=== PATIENT | female | born 2000 | race Caucasian/White ===

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

== ENCOUNTER 2018-07-13 15:41 | Emergency (ER) | payer OTHER ==
[2018-07-13] MEDS ORDERED: EPINEPHrine 1 MG/ML INJ IM ONE (15:57)
[2018-07-13] MEDS ORDERED: methylPREDNISolone SOD SUCC 125 MG/2 ML VIAL IVP ONE (16:01)
--- NOTE | 2018-07-13 16:04 | EDPHY ---
H & P Stated Complaint: Unk allergen 30min ASSOCIATE- red itching skin, swollen lips, urticaria. Time Seen by Provider: 07/13/18 15:48 HPI/ROS: CHIEF COMPLAINT: Allergic reaction HISTORY OF PRESENT ILLNESS: 18-year-old female presents emergency department with a presumed allergic reaction. Unclear allergen. Patient reports she was at the gym, had been working out provide an hour and a half, 1st developed some abdominal upset, went to the bathroom,/moderate her face, and then relatively quickly developed redness of the face, itching, and hives which covers her entire body. Slight swelling of the eyelids. No difficulty breathing. Patient presents with her friend. Patient had been otherwise well prior to this reaction. She was at the gym that she typically goes to. REVIEW OF SYSTEMS: A comprehensive 10 system review of systems was reviewed and is otherwise negative aside from elements mentioned in the history of present illness and medical decision making. PAST MEDICAL HISTORY: Seasonal allergies. Anxiety. SOCIAL HISTORY: Here with a friend. [employer] student. VITAL SIGNS Reviewed by me. GENERAL: Well-developed, well-nourished, tearful. Reports she is scared of needles. Diffuse erythroderma the face. HEENT: Atraumatic. Eyes: No icterus, no injection. Swelling of the eyelids bilaterally. Mouth: moist mucous membranes. No erythema or lesions. Slight angioedema of the uvula. Neck: supple with no adenopathy. No stridor. LUNGS: Clear to auscultation bilaterally, no wheezes, rhonchi or rales. CARDIAC: Regular rate and rhythm, no rubs, murmurs or gallops. ABDOMEN: Soft, nontender, nondistended, bowel sounds normal. BACK: No CVA tenderness. EXTREMITIES: No trauma. No edema. Range of motion is normal throughout. NEURO: Alert and oriented, grossly nonfocal. SKIN: Diffuse hives and erythema covering the entire body down to the knees. PSYCHIATRIC: Normal mentation, no agitation. - Medical/Surgical History Hx Asthma: No Hx Chronic Respiratory Disease: No Hx Diabetes: No Hx Cardiac Disease: No Hx Renal Disease: No Hx Cirrhosis: No Hx Alcoholism: No Hx HIV/AIDS: No Hx Splenectomy or Spleen Trauma: No Other PMH: none - Social History Smoking Status: Never smoked Constitutional: Initial Vital Signs Temperature (C) 36.6 C 07/13/18 15:45 Heart Rate 88 07/13/18 15:45 Respiratory Rate 16 07/13/18 15:45 Blood Pressure 110/62 07/13/18 15:45 O2 Sat (%) 97 07/13/18 15:45 O2 Delivery Mode Room Air Allergies/Adverse Reactions: No Known Allergies Allergy (Verified 07/13/18 15:43) Home Medications: Medication Instructions Recorded EPINEPHrine [Epipen 0.3 MG] 0.3 mg IM ONCE #2 syr 07/13/18 predniSONE 40 mg PO DAILY #6 tab 07/13/18 Medical Decision Making ED Course/Re-evaluation: Treated immediately with epinephrine 0.3 mg IM. She received Benadryl 50 mg, Solu-Medrol 125 mg, and ranitidine 50 mg. Patient's hives improved rapidly. On re-examination at 5:15 a.m., she is resting comfortably. She has no further hives, angioedema has resolved. No further swelling of her eyelids. Long discussion held with the patient and her friend concerning today's events. Patient will be discharged with prescription for EpiPen, prednisone, and instructions regarding Benadryl as well as H2 blockers. She was aware that the rash may return over the next several days especially in the setting of stress or heat. Differential Diagnosis: Differential diagnoses for the patient's symptom complex was considered including but not limited to allergic reaction, urticaria, anaphylaxis, hereditary angioedema, drug-induced reaction. - Data Points Medications Given: Discontinued Medications Diphenhydramine HCl (Benadryl Injection) 50 mg IVP EDNOW ONE Stop: 07/13/18 15:59 Last Admin: 07/13/18 16:01 Dose: 50 mg Epinephrine HCl (Epinephrine) 0.3 mg IM EDNOW ONE Stop: 07/13/18 15:58 Last Admin: 07/13/18 15:57 Dose: 0.3 mg Methylprednisolone Sodium Succinate (Solu-Medrol) 125 mg IVP EDNOW ONE Stop: 07/13/18 16:02 Last Admin: 07/13/18 16:02 Dose: 125 mg Ranitidine HCl (Zantac) 50 mg IVP EDNOW ONE Stop: 07/13/18 16:10 Last Admin: 07/13/18 16:19 Dose: 50 mg Departure - Departure Disposition: Home, Routine, Self-Care Clinical Impression: Urticaria Allergic reaction Qualifiers: Encounter type: initial encounter Qualified Code(s): T78.40XA - Allergy, unspecified, initial encounter Condition: Serious Instructions: Urticaria (ED), Anaphylaxis (ED) Additional Instructions: There are 4 medications used to treat allergic reactions. #1. The first is epinephrine. Please use the epinephrine pen in the future as needed if the patient develops acute swelling, throat tightness, shortness of breath, or severe rash in the setting of allergic reaction. #2. The second type of medication are antihistamines. The most common antihistamine is diphenhydramine (Benadryl). Dose is 25-50 mg every 6-8 hours as needed for itching and rash. Diphenhydramine can be sedating. Another type of antihistamine is loratadine (Claritin). This is taken once a day. It is not sedating. Repeat doses of antihistamines may be needed as the hives will come and go over the next several days. You may notice that the hives are worse after exposure to heat, warm showers, or exertion. #3. The third medication is Pepcid which is another type of an antihistamine. Dose is 20 mg once a day for 3 days. This should be taken on a regular basis. #4. The fourth medication is prednisone, which is a steroid. The dose is 40 mg a day x3 doses. Please take this as instructed. #5. Return to emergency department or seek care urgently if severe shortness of breath develops, swelling of the lips, eyelids, or sensation that the throat is closing. Please follow up with your primary care physician as needed. Referrals: NONE *PRIMARY CARE P,. [Primary Care Provider] - As per Instructions Prescriptions: EPINEPHrine [Epipen 0.3 MG] 0.3 mg IM ONCE #2 syr predniSONE 40 mg PO DAILY #6 tab
[2018-07-13] MEDS ORDERED: RANITIDINE 50 MG/2 ML VIAL IVP ONE (16:09)
[2018-07-13 16:55] VITALS: BP 113/52
== END 2018-07-13 17:32 | disposition home or self-care (01) ==
DX: L50.9 Urticaria, unspecified (principal); T78.40XA Allergy, unspecified, initial encounter
CPT/HCPCS: 96374; J0171; J1200; J2780; J2930